=== PATIENT | male | born 1960 | race Caucasian/White ===

== ENCOUNTER 2017-10-16 13:53 | Emergency (ER) | payer BC, SELFPAY ==
--- NOTE | 2017-10-16 14:04 | ED.HA ---
HPI - Headache <ELLA Cartagena - Last Filed: 10/16/17 21:50> General Chief Complaint: Dizziness Stated Complaint: dizziness Time Seen by Provider: 10/16/17 14:28 History of Present Illness HPI Narrative: 57-year-old male here for complaint of having a dizziness/vertigo that started earlier this morning when he woke up. He states that if he tilts his head upwards or straightforward he gets a sensation that the room is spinning. He denies any headache or chills. No nausea or vomiting. No chest pain no shortness of breath. Patient was ambulatory into the emergency room. He states that he has not had symptoms like this in the past. No other concerns or complaints at this time Related Data Home Medications Medication Instructions Recorded Confirmed Vitamin D3 1 cap PO DAILY 10/16/17 10/16/17 multivitamin 1 tab PO DAILY 10/16/17 10/16/17 turmeric root extract 1 tab PO DAILY 10/16/17 10/16/17 Previous Rx's Medication Instructions Recorded meclizine 25 mg PO BID PRN #20 tab 10/16/17 Allergies Allergy/AdvReac Type Severity Reaction Status Date / Time No Known Allergies Allergy Uncoded 10/16/17 15:48 Review of Systems <ELLA Cartagena - Last Filed: 10/16/17 21:50> Constitutional Denies chills, Denies fever(s), Denies lethargy and Denies weakness Eyes Denies change in vision, Denies eye discharge, Denies irritation and Denies loss of vision ENT Ears, Nose, Mouth, and Throat: Reports vertigo Cardiovascular Denies chest pain, Denies irregular heart rhythm, Denies lightheadedness, Denies palpitations and Denies orthopnea Integumentary/Breasts Denies pruritus, Denies erythema, Denies rash and Denies wounds Neurologic Reports vertigo, Denies loss of vision and Denies weakness Endocrine Denies palpitations Exam <ELLA Cartagena - Last Filed: 10/16/17 21:50> Initial Vital Signs Initial Vital Signs: Vital Signs Temperature 98.2 F 10/16/17 14:05 Pulse Rate 72 10/16/17 14:05 Respiratory Rate 12 10/16/17 14:05 Blood Pressure 140/69 H 10/16/17 14:05 Pulse Oximetry 98 10/16/17 14:05 Const General: cooperative and well developed Nutritional Appearance: well nourished Orientation: alert, awake, oriented x3 and not confused [facility] Head: normocephalic and atraumatic Ears: external ears normal and TM's normal bilaterally Nose: external nose normal and No nasal discharge Face and sinus: no sinus tenderness Mouth: oral mucosae normal and moist mucous membranes Eyes General: appearance normal, both eyes and all related structures Eyelids: eyelids normal Conjunctivae: conjunctivae normal Sclera: sclerae normal Pupils: PERRL EOM: EOM intact bilaterally and No nystagmus Resp Effort & Inspection: normal respiratory effort, able to speak in complete sentences, no respiratory distress and no use of accessory muscles Auscultation: clear to auscultation bilaterally, no rales, no rhonchi and no wheezes Cardio Rate: regular rate Rhythm: regular rhythm Heart Sounds: no click, no gallops, no murmurs and no rubs Pulses: normal peripheral pulses Skin General: no rashes or lesions noted, No jaundice and No petechiae Neuro General: alert, awake, oriented x3, gait normal and CN's II-XI intact bilaterally Cranial Nerves: PERRL, able to rotate head bilaterally and No nystagmus Cognition: normal cognition Speech: speech normal Gait: normal gait <Arturo Monroy DO - Last Filed: 10/23/17 18:12> Initial Vital Signs Initial Vital Signs: Vital Signs Temperature 98.2 F 10/16/17 14:05 Pulse Rate 72 10/16/17 14:05 Respiratory Rate 12 10/16/17 14:05 Blood Pressure 140/69 H 10/16/17 14:05 Pulse Oximetry 98 10/16/17 14:05 Course <ELLA Cartagena - Last Filed: 10/16/17 21:50> Orders Ordered: Discontinued Medications Meclizine HCl (Antivert) 25 mg PO NOW ONE Stop: 10/16/17 14:29 Last Admin: 10/16/17 14:37 Dose: 25 mg Vital Signs - 8 hr 10/16/17 14:05 10/16/17 15:56 10/16/17 16:01 Temperature 98.2 F Pulse Rate 72 65 65 Respiratory Rate 12 18 18 Blood Pressure 140/69 H 123/75 H Blood Pressure [Left Arm] 123/75 H Pulse Oximetry 98 96 96 <Arturo Monroy DO - Last Filed: 10/23/17 18:12> Orders Ordered: Discontinued Medications Meclizine HCl (Antivert) 25 mg PO NOW ONE Stop: 10/16/17 14:29 Last Admin: 10/16/17 14:37 Dose: 25 mg Vital Signs - 8 hr 10/16/17 14:05 10/16/17 15:56 10/16/17 16:01 Temperature 98.2 F Pulse Rate 72 65 65 Respiratory Rate 12 18 Blood Pressure 140/69 H 123/75 H Blood Pressure [Left Arm] 123/75 H Pulse Oximetry 98 96 96 MDM - Headache <ELLA Cartagena - Last Filed: 10/16/17 21:50> Lab Data Result diagrams: 10/16/17 14:40 10/16/17 14:40 Lab Results 10/16/17 10/16/17 10/16/17 Range/Units 14:40 14:40 14:40 WBC 6.1 (4.5-11.0) X10^3/uL RBC 5.08 (4.5-5.9) X10^6/uL Hgb 15.3 (13.5-17.5) g/dL Hct 44.3 (41-53) % MCV 87.3 (80-100) fL MCH 30.1 (26-34) PG MCHC 34.5 (30-36) % RDW 13.1 (11.6-14.8) % Plt Count 229 (150-400) X10^3/uL Neut % (Auto) 63.1 (50-75) % Lymph % (Auto) 29.5 (25-40) % Nolan % (Auto) 6.1 (3-14) % Eos % (Auto) 0.7 L (2-4) % Baso % (Auto) 0.6 (0-2) % Neut # (Auto) 3800 (9773-4596) /uL PT 11.7 (10.1-12.7) SECONDS INR 1.1 (0.9-1.3) Sodium 142 (137-145) mmol/L Potassium 4.7 (3.4-5.1) mmol/L Chloride 103.0 (98-107) mmol/L Carbon Dioxide 27.0 (22-32) mmol/L BUN 17.0 (9-20) mg/dL Creatinine 0.90 (0.66-1.25) mg/dL Estimated GFR > 60.0 (>60) mL/min BUN/Creatinine Ratio 18.9 (6-22) Glucose 123 H (70-100) mg/dL Calcium 9.3 (8.4-10.2) mg/dL Total Bilirubin 0.4 (0.2-1.3) mg/dL AST 30 (17-59) IU/L ALT 51 (21-72) IU/L Alkaline Phosphatase 64 (38-126) U/L Troponin I < 0.012 (0.01-0.034) ng/mL Total Protein 7.3 (6.3-8.2) g/dL Albumin 4.4 (3.5-5.0) g/dL Globulin 2.9 (1.7-4.1) g/dL Albumin/Globulin Ratio 1.5 (1.0-2.8) Imaging Data CT scan - head: Radiologist's impression: PROCEDURE: CT HEAD/BRAIN WO CON INDICATIONS: dizziness and vertigo TECHNIQUE: Noncontrast 4.5 mm thick angled axial sections acquired from the foramen magnum to the vertex, with coronal and sagittal reformats. For radiation dose reduction, the following was used: automated exposure control, adjustment of mA and/or kV according to patient size. COMPARISON: None. FINDINGS: Image quality: Excellent. CSF spaces: Basal cisterns are patent. No extra-axial fluid collections. Ventricles are normal in size and shape. Brain: No midline shift. No intracranial masses or hemorrhage. Iqbal-white matter interface is normal. Skull and face: Calvarium and visualized facial bones are intact, without suspicious lesions. Sinuses: Visualized sinuses and mastoids are clear. IMPRESSION: Normal head CT exam. ECG Data Interpretation: -EKG shows normal sinus rhythm with no ST elevation or depression. No ectopy. Ventricular rate is 74. Pure interval 172. QRS duration 78. QTC 429 MDM Narrative Medical decision making narrative: No neurological deficits on exam. Head CT was obtained was negative. Cardiac enzymes were negative. EKG was unremarkable. Other laboratory results were normal. Signs and symptoms present as BPPV. Patient was given meclizine in the emergency room which helped his symptoms and patient states feels much better. Discussed other causes of vertigo and recommended patient follow up with primary care provider in the next couple days for re-evaluation and discussion of MRI. He states that he will follow up with his primary care provider. For any worsening symptoms return to the emergency room. He is prescribed meclizine for his symptoms. He has presented with modified Martha maneuvers to see if it helps his symptoms. <Arturo Eliana, DO - Last Filed: 10/23/17 18:12> Lab Data Lab Results 10/16/17 10/16/17 10/16/17 Range/Units 14:40 14:40 14:40 WBC 6.1 (4.5-11.0) X10^3/uL RBC 5.08 (4.5-5.9) X10^6/uL Hgb 15.3 (13.5-17.5) g/dL Hct 44.3 (41-53) % MCV 87.3 (80-100) fL MCH 30.1 (26-34) PG MCHC 34.5 (30-36) % RDW 13.1 (11.6-14.8) % Plt Count 229 (150-400) X10^3/uL Neut % (Auto) 63.1 (50-75) % Lymph % (Auto) 29.5 (25-40) % Nolan % (Auto) 6.1 (3-14) % Eos % (Auto) 0.7 L (2-4) % Baso % (Auto) 0.6 (0-2) % Neut # (Auto) 3800 (6870-5193) /uL PT 11.7 (10.1-12.7) SECONDS INR 1.1 (0.9-1.3) Sodium 142 (137-145) mmol/L Potassium 4.7 (3.4-5.1) mmol/L Chloride 103.0 (98-107) mmol/L Carbon Dioxide 27.0 (22-32) mmol/L BUN 17.0 (9-20) mg/dL Creatinine 0.90 (0.66-1.25) mg/dL Estimated GFR > 60.0 (>60) mL/min BUN/Creatinine Ratio 18.9 (6-22) Glucose 123 H (70-100) mg/dL Calcium 9.3 (8.4-10.2) mg/dL Total Bilirubin 0.4 (0.2-1.3) mg/dL AST 30 (17-59) IU/L ALT 51 (21-72) IU/L Alkaline Phosphatase 64 (38-126) U/L Troponin I < 0.012 (0.01-0.034) ng/mL Total Protein 7.3 (6.3-8.2) g/dL Albumin 4.4 (3.5-5.0) g/dL Globulin 2.9 (1.7-4.1) g/dL Albumin/Globulin Ratio 1.5 (1.0-2.8) Discharge Plan Departure Patient Disposition: Home, Self-Care Clinical Impression: Vertigo Discharge Date/Time: 10/16/17 16:01 Interventions: ED Discharge Assessment Last Done: 10/16/17 16:01 Instructions: DI for Benign Paroxysmal Positional Vertigo Activity Restrictions/Additional Instructions: Imaging and laboratory results today were unremarkable. Signs and symptoms presents as benign paroxymal positional vertigo. He has been prescribed meclizine to help with her symptoms use as directed. Also perform Martha maneuvers as directed. Follow up with her primary care provider in the next couple a days for discussion of MRI for further evaluation of the vertigo symptoms. For any worsening symptoms return to the emergency room. Prescriptions: New meclizine 25 mg tablet 25 mg PO BID PRN (Reason: vertigo) Qty: 20 RF: 0 No Action Vitamin D3 1 cap PO DAILY RF: 0 multivitamin 1 tab PO DAILY RF: 0 turmeric root extract 1 tab PO DAILY RF: 0 Referrals: Michelle Nascimento MD [Primary Care Provider] - <Arturo Monroy DO - Last Filed: 10/23/17 18:12> Cosign ED Attending Oneal Attestation: I was available for consultation during this patient's emergency department encounter
[2017-10-16 14:05] VITALS: BP 140/69; PULSE 72; RESP 12; TEMP 36.8; O2SAT 98
--- NOTE | 2017-10-16 14:22 | DI.CT.S_ITS ---
PROCEDURE: CT HEAD/BRAIN WO CON INDICATIONS: dizziness and vertigo TECHNIQUE: Noncontrast 4.5 mm thick angled axial sections acquired from the foramen magnum to the vertex, with coronal and sagittal reformats. For radiation dose reduction, the following was used: automated exposure control, adjustment of mA and/or kV according to patient size. COMPARISON: None. FINDINGS: Image quality: Excellent. CSF spaces: Basal cisterns are patent. No extra-axial fluid collections. Ventricles are normal in size and shape. Brain: No midline shift. No intracranial masses or hemorrhage. Iqbal-white matter interface is normal. Skull and face: Calvarium and visualized facial bones are intact, without suspicious lesions. Sinuses: Visualized sinuses and mastoids are clear. IMPRESSION: Normal head CT exam. Dictated by: Benjy Coats M.D. on 10/16/2017 at 14:47 Approved by: Benjy Coats M.D. on 10/16/2017 at 14:48
--- NOTE | 2017-10-16 14:22 | DI.RAD.S_ITS ---
PROCEDURE: XR CHEST 1V INDICATIONS: dizziness TECHNIQUE: One view of the chest was acquired. COMPARISON: [facility], CR, XR CHEST 2VW, 08/01/2016, 9:46. FINDINGS: Surgical changes and devices: None. Lungs and pleura: No pleural effusions or pneumothorax. Lungs are clear. Mediastinum: Mediastinal contours appear normal. Heart size is normal. Bones and chest wall: No suspicious bony lesions. Overlying soft tissues appear unremarkable. IMPRESSION: No acute cardiopulmonary disease process. Dictated by: Sujatha Chaney MD, PhD on 10/16/2017 at 14:15 Approved by: Sujatha Chaney MD, PhD on 10/16/2017 at 14:16
[2017-10-16] MEDS: MECLIZINE HCL 12.5 MG TABLET 25 MG PO (14:37)
[2017-10-16 14:51] LABS: Add Manual Diff / Slide Review NO; Basophils Percent Auto 0.6 % (0-2); Eosinophils Percent Auto 0.7 % (2-4); Hematocrit 44.3 % (41-53); Hemoglobin 15.3 g/dL (13.5-17.5); Lymphocytes Percent Auto 29.5 % (25-40); Mean Corpuscular HGB Conc 34.5 % (30-36); Mean Corpuscular Hemoglobin 30.1 PG (26-34); Mean Corpuscular Volume 87.3 fL (80-100); Monocytes Percent Auto 6.1 % (3-14); Neutrophils Absolute Auto 3800 /uL (3000-5900); Neutrophils Percent Auto 63.1 % (50-75); Platelet Count 229 X10^3/uL (150-400); Red Blood Cell Count 5.08 X10^6/uL (4.5-5.9); Red Cell Distribution Width 13.1 % (11.6-14.8); White Blood Cell Count 6.1 X10^3/uL (4.5-11.0)
[2017-10-16 14:58] LABS: INR 1.1 (0.9-1.3); Prothrombin Time 11.7 SECONDS (10.1-12.7)
[2017-10-16 15:03] LABS: Alanine Aminotransferase 51 IU/L (21-72); Albumin 4.4 g/dL (3.5-5.0); Albumin Globulin Ratio 1.5 (1.0-2.8); Alkaline Phosphatase 64 U/L (38-126); Aspartate Aminotransferase 30 IU/L (17-59); BUN Creatinine Ratio 18.9 (6-22); Bilirubin Total 0.4 mg/dL (0.2-1.3); Calcium 9.3 mg/dL (8.4-10.2); Estimated Glomerular Filt Rate > 60.0 mL/min (>60); Globulin 2.9 g/dL (1.7-4.1); Glucose 123 mg/dL (70-100); HEMOLYSIS < 15 (0-50); Potassium 4.7 mmol/L (3.4-5.1); Sodium 142 mmol/L (137-145); Total Protein 7.3 g/dL (6.3-8.2)
[2017-10-16 15:14] LABS: Troponin I < 0.012 ng/mL (0.01-0.034)
[2017-10-16 15:56] VITALS: BP 123/75; PULSE 65; RESP 18; O2SAT 96
--- NOTE | 2017-10-16 15:56 | PC.NURSE ---
States feels much better after po meds.
[2017-10-16 16:01] VITALS: BP 123/75; PULSE 65; RESP 18; O2SAT 96
== END 2017-10-16 16:01 | disposition home or self-care (01) ==
PROVIDERS: Emergency Provider Nurse Practitioner Family; Family Provider Internal Medicine; PCP Internal Medicine
DX: R42 Dizziness and giddiness (principal)
CPT/HCPCS: 36415; 70450; 71045; 80053; 84484; 85025; 85610; 93005; 99282; 99285

== ENCOUNTER → 2018-01-01 10:06 | Outpatient (CLI) | payer BC, SELFPAY ==
--- NOTE | 2018-01-01 10:10 | DI.RAD.S_ITS ---
PROCEDURE: XR THORACIC SPINE 3V INDICATIONS: THORACIC SPINE PAIN TECHNIQUE: 3 views of the thoracic spine were acquired. COMPARISON: None. FINDINGS: Bones: No fractures or dislocations. No suspicious bony lesions. 12 pairs of ribs are noted, and appear intact where visualized. Soft tissues: No paravertebral stripe thickening. IMPRESSION: Very mild degenerative endplate changes in lower thoracic spine. No compression fracture or spondylolisthesis. Dictated by: Bharathi Macias M.D. on 01/01/2018 at 10:58 Approved by: Bharathi Macias M.D. on 01/01/2018 at 10:58
== END ==
PROVIDERS: PCP Internal Medicine; Visit Provider Internal Medicine
DX: M54.6 Pain in thoracic spine (principal)
CPT/HCPCS: 72072

== ENCOUNTER → 2018-06-22 11:57 | Outpatient (CLI) | payer BC, SELFPAY ==
[2018-06-22 12:55] LABS: Alanine Aminotransferase 81 IU/L (21-72); Albumin 4.8 g/dL (3.5-5.0); Albumin Globulin Ratio 1.4 (1.0-2.8); Alkaline Phosphatase 61 U/L (38-126); Aspartate Aminotransferase 129 IU/L (17-59); Bilirubin Total 0.6 mg/dL (0.2-1.3); Blood Urea Nitrogen 18 mg/dL (9-20); Calcium 9.3 mg/dL (8.4-10.2); Carbon Dioxide 29 mmol/L (22-32); Chloride 100 mmol/L (98-107); Cholesterol 253 mg/dL (140-199); Estimated Glomerular Filt Rate > 60.0 mL/min (>60); Globulin 3.4 g/dL (1.7-4.1); Glucose 99 mg/dL (70-100); HDL Cholesterol 49 mg/dL (40-60); HEMOLYSIS < 15 (0-50); LDL Cholesterol Calculated 169 mg/dL (<100); Sodium 139 mmol/L (137-145); Total Protein 8.2 g/dL (6.3-8.2); Triglycerides 173 mg/dL (35-150)
[2018-06-22 13:02] LABS: C-Reactive Protein Quant < 0.5 mg/dL (<1.0)
[2018-06-22 13:41] LABS: Vitamin B12 585 pg/mL (239-931)
== END ==
PROVIDERS: Family Provider Internal Medicine; PCP Internal Medicine; Visit Provider Internal Medicine
DX: E78.00 Pure hypercholesterolemia, unspecified (principal); M79.10 Myalgia, unspecified site
CPT/HCPCS: 36415; 80053; 80061; 82607; 84443; 86140

== ENCOUNTER → 2018-09-20 12:47 | Outpatient (CLI) | payer BC, SELFPAY ==
[2018-09-20 14:15] LABS: Alanine Aminotransferase 35 IU/L (21-72); Albumin 4.7 g/dL (3.5-5.0); Albumin Globulin Ratio 1.5 (1.0-2.8); Alkaline Phosphatase 62 U/L (38-126); Aspartate Aminotransferase 27 IU/L (17-59); BUN Creatinine Ratio 17.8 (6-22); Bilirubin Total 0.4 mg/dL (0.2-1.3); Blood Urea Nitrogen 16 mg/dL (9-20); Calcium 9.6 mg/dL (8.4-10.2); Carbon Dioxide 30 mmol/L (22-32); Chloride 101 mmol/L (98-107); Estimated Glomerular Filt Rate > 60.0 mL/min (>60); Globulin 3.1 g/dL (1.7-4.1); Glucose 84 mg/dL (70-100); HEMOLYSIS < 15 (0-50); Sodium 141 mmol/L (137-145); Total Protein 7.8 g/dL (6.3-8.2)
== END ==
PROVIDERS: PCP Internal Medicine; Visit Provider Internal Medicine
DX: R94.5 Abnormal results of liver function studies (principal)
CPT/HCPCS: 36415; 80053

== ENCOUNTER → 2018-09-23 08:19 | Outpatient (CLI) | payer BC, SELFPAY ==
--- NOTE | 2018-09-23 | DI.US.S_ITS ---
PROCEDURE: US ABDOMEN COMPLETE INDICATIONS: ABNORMAL RESULTS OF LIVER FUNCTION TESTS TECHNIQUE: Real-time scanning was performed of the abdominal and retroperitoneal organs, with image documentation. COMPARISON: [facility], US, US ABDOMEN COMPLETE, 06/07/2017, 12:47. [facility], CT, CT ABD PELVIS W CON, 08/08/2016, 11:24. FINDINGS: Liver: Liver is normal in size and homogeneous in echotexture. Gallbladder: No gallstones identified. Normal gallbladder wall. No pericholecystic fluid. Negative sonographic Alex sign. Biliary ducts: Intrahepatic bile ducts are non-dilated. Extrahepatic bile duct caliber measures for 0.0 mm. Normal is 6-7 mm or less in diameter, or 10 mm or less post-cholecystectomy. Pancreas: Visualized portions of the pancreas are sonographically normal. Spleen: Spleen is normal in size and homogeneous in echotexture. Kidneys: Kidneys are normal in size and echotexture. Right kidney measures 11.6 cm long; left kidney measures 10.4 cm long. No hydronephrosis or nephrolithiasis. No solid masses. Aorta: Visualized aorta is normal in caliber at less than 3 cm. Iliacs: Proximal common iliac arteries are normal in caliber at less than 2.5 cm. IVC: Intrahepatic inferior vena cava is patent. Miscellaneous: No free abdominal fluid. IMPRESSION: No source for elevated LFTs identified. Dictated by: Tommy PLEITEZ Interpreted: Sujatha Chaney MD on 09/23/2018 at 10:11 Approved by: Sujatha Chaney MD, PhD on 09/23/2018 at 15:25
== END ==
PROVIDERS: PCP Internal Medicine; Visit Provider Internal Medicine
DX: R79.89 Other specified abnormal findings of blood chemistry (principal)
CPT/HCPCS: 76700

== ENCOUNTER → 2020-06-03 13:17 | Outpatient (CLI) | payer BC, SELFPAY ==
[2020-06-03 14:48] LABS: Alanine Aminotransferase 48 IU/L (<50); Albumin 4.5 g/dL (3.5-5.0); Albumin Globulin Ratio 1.6 (1.0-2.8); Alkaline Phosphatase 67 U/L (38-126); Aspartate Aminotransferase 63 IU/L (17-59); Bilirubin Total 0.4 mg/dL (0.2-1.3); Blood Urea Nitrogen 17 mg/dL (9-20); Calcium 9.2 mg/dL (8.4-10.2); Carbon Dioxide 31 mmol/L (22-32); Chloride 103 mmol/L (98-107); Cholesterol 233 mg/dL (140-199); Estimated Glomerular Filt Rate > 60.0 mL/min (>60); Globulin 2.9 g/dL (1.7-4.1); Glucose 91 mg/dL (70-100); HDL Cholesterol 47 mg/dL (40-60); HEMOLYSIS < 15 (0-50); LDL Cholesterol Calculated 157 mg/dL (<100); Lipase 84 U/L (23-300); Potassium 4.8 mmol/L (3.4-5.1); Sodium 138 mmol/L (137-145); Total Protein 7.4 g/dL (6.3-8.2); Triglycerides 147 mg/dL (35-150)
== END ==
PROVIDERS: PCP Internal Medicine; Referring Provider Internal Medicine; Visit Provider Internal Medicine
DX: R10.13 Epigastric pain (principal); E78.5 Hyperlipidemia, unspecified
CPT/HCPCS: 36415; 80053; 80061; 83690

== ENCOUNTER → 2020-06-11 11:49 | Outpatient (CLI) | payer BC, SELFPAY ==
--- NOTE | 2020-06-11 12:49 | DI.CT.S_ITS ---
PROCEDURE: CT ABDOMEN W CON INDICATIONS: Epigastric pain TECHNIQUE: After the administration of oral and intravenous contrast, 5 mm thick sections acquired from the diaphragms to the iliac crests. 5 mm thick coronal and sagittal reformats were acquired. For radiation dose reduction, the following was used: automated exposure control, adjustment of mA and/or kV according to patient size. COMPARISON: [facility], CT, CT ABD PELVIS W CON, 08/08/2016, 11:24. FINDINGS: Image quality: Excellent. Lung bases: Lung bases are clear except for a small pneumatocele at the right lung base just above the diaphragm. Heart size is normal. Solid organs: Liver is normal in size and enhancement. Gallbladder appears normal . Biliary system is non dilated. Pancreas enhances normally. Spleen is normal in size and enhancement. No adrenal nodules. Kidneys are normal in size, without hydronephrosis. Peritoneum and bowel: Contrast enhanced bowel loops appear normal in caliber. No free fluid or air. Nodes and vessels: No retroperitoneal or mesenteric adenopathy by size criteria. Aorta and inferior vena cava are normal in size. Bones: No suspicious bony lesions. No vertebral body compression fractures. Miscellaneous: No ventral hernias. 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 Dictated by: Trevon Forde M.D. on 06/11/2020 at 13:13 Approved by: Trevon Forde M.D. on 06/11/2020 at 13:14
== END ==
PROVIDERS: PCP Internal Medicine; Referring Provider Internal Medicine; Visit Provider Internal Medicine
DX: R10.13 Epigastric pain (principal); J98.4 Other disorders of lung
CPT/HCPCS: 74160; Q9967

== ENCOUNTER → 2020-08-09 13:50 | Outpatient (CLI) | payer BC, SELFPAY ==
[2020-08-09 15:50] LABS: COVID19 -Nasal RAPID Negative (Negative)
== END ==
PROVIDERS: PCP Internal Medicine; Visit Provider Physician Assistant
DX: Z20.822 Contact with and (suspected) exposure to COVID-19 (principal)
CPT/HCPCS: 87635

== ENCOUNTER 2020-08-11 07:51 | Day surgery (SDC) | payer BC, SELFPAY ==
--- NOTE | 2020-08-11 | PATH_ITS ---
[facility] Accession Number: [id number] . 01 Material submitted: . colon - SIGMOID COLON POLYPS (2) . 02 Diagnosis: Sigmoid Colon Polyps, Biopsies: Fragments of hyperplastic polyp (two polyps removed). V 08/16/2020 1458 Local . 02 Electronically signed: . Nadeem Larson MD, PhD, Pathologist NPI- [id number] . 01 Gross description: . SIGMOID COLON POLYPS (2): Received in formalin are 4 fragment(s) of clark, soft tissue measuring 1.0 x 0.3 x 0.1 cm to 0.3 x 0.3 x 0.1 cm submitted entirely in 1 cassette(s) /QBJ 08/13/2020 0835 Local . 02 Pathologist provided ICD-10: K63.5 . 02 CPT . 811531 Performed at: 01 [facility] [address] [facility], [place], [place] [id number] MD Bertin Grissom MD Phone: [phone] Performed at: 02 [facility] [address] [place], [place] [id number] MD Sneha Goodwin MD Phone: [phone]
[2020-08-11 08:23] VITALS: BP 134/70; PULSE 68; RESP 13; TEMP 36.4; O2SAT 96; BMI 25.0
[2020-08-11] MEDS: SODIUM CHLORIDE 0.9% 1,000 ML 84 ML IV (08:45)
--- NOTE | 2020-08-11 09:36 | P.HP_ITS ---
History of Present Illness History of Present Illness Chief complaint: [facility] Patient History Family & Social History Social History: household members none Tobacco & Substance use: Smoking Status Former smoker alcohol intake former Substance Use Type does not use Meds Home Medications and Allergies Home Medications Medication Instructions Recorded Confirmed Type Vitamin D3 1 cap PO DAILY 10/16/17 08/11/20 History meclizine 25 mg PO BID PRN #20 tab 10/16/17 08/11/20 Rx multivitamin 1 tab PO DAILY 10/16/17 08/11/20 History turmeric root extract 1 tab PO DAILY 10/16/17 10/16/17 History Allergies Allergy/AdvReac Type Severity Reaction Status Date / Time No Known Allergies Allergy Uncoded 10/16/17 15:48 Review of Systems Review of Systems ROS: Yes All systems reviewed with the patient and are negative except as otherwise documented Exam Vital Signs (past 8 hours): - 08/11/20 08:23 Temperature 97.6 F Pulse Rate 68 Respiratory Rate 13 Blood Pressure 134/70 Pulse Oximetry 96 Oxygen Delivery Method Room Air Oxygen Flow Rate 0 Narrative Exam Narrative: Awake alert and oriented x3, pupils equal round reactive to light, oropharynx clear, heart regular rate and rhythm, lungs clear to auscultation bilaterally, abdomen nontender and nondistended, extremities without edema, no gross neurologic deficits noted Assessment & Plan Assessment & Plan narrative: Change in bowel habits COVID-19 COVID-19 status: Negative
--- NOTE | 2020-08-11 10:02 | PM.OP.ENDO ---
Operative Date/Time/Diagnoses Date of procedure: 08/11/20 Procedure & Clinicians Study performed: Colonoscopy with biopsy Moderate conscious sedation was administered by the endoscopy nurse and supervised by the endoscopist. The following parameters were monitored: Oxygen saturation, heart rate, blood pressure, and response to care. 4mg midazolam and 100mcg fentanyl given. Same procedure as scheduled: Yes Indications: Change in bowel habits. Last colonoscopy was in 2012. Procedure Notes Procedure in detail: Prior to the procedure, history and physical was performed, and patient medications and allergies were reviewed. Preprocedure nursing history and assessment was reviewed. Patient identification and proposed procedure were verified by the physician and nurse in the procedure room. The physical status of the patient was reassessed after the procedure. After informed consent was obtained including risks, benefits, and alternatives, the scope was passed under direct vision. Throughout the procedure, the patient's blood pressure, pulse, and oxygen saturations were monitored continuously. The colonoscope was introduced through the anus and advanced to the cecum as identified by the appendiceal orifice and ileocecal valve. The patient tolerated the procedure well. Bowel prep was deemed adequate to detect polyps greater than 5 mm. AICHA and perianal examinations were unremarkable. Grade 1 internal hemorrhoids noted during retroflexion in the rectum. Two sessile polyps measuring 3 and 4 mm respectively were removed from the sigmoid colon using Jumbo biopsy forceps and retrieved The entire examined colon was otherwise unremarkable Impression: Internal hemorrhoids Two small sigmoid colon polyps removed Colon otherwise normal appearing Sedation minutes: 19 Complications: other (EBL minimal. No complications) Post-procedure Plan for aftercare: Follow-up pathology results Repeat colonoscopy at a date to be determined based on pathology results Resume home medications Resume previous diet Patient has a contact number available for emergencies. The signs and symptoms of potential delayed complications were discussed with the patient. Return to normal activities tomorrow. Written discharge instructions were provided to the patient. Discharge home with escort
[2020-08-11] MEDS: fentaNYL 250 MCG/5 ML INJ IV (10:04)
[2020-08-11 10:05] VITALS: BP 106/58; PULSE 68; RESP 14; TEMP 36.4; O2SAT 95
[2020-08-11] MEDS: MIDAZOLAM 5 MG/5 ML VIAL IV (10:05)
[2020-08-11 10:10] VITALS: BP 107/58; PULSE 64; RESP 14; O2SAT 96
[2020-08-11 10:15] VITALS: BP 108/59; PULSE 60; RESP 12; O2SAT 95
[2020-08-11 10:20] VITALS: BP 108/75; PULSE 85; RESP 14; O2SAT 95
[2020-08-11 10:30] VITALS: BP 117/78; PULSE 70; RESP 16; TEMP 36.6; O2SAT 98
--- NOTE | 2020-08-11 10:40 | SUR.PHASEII ---
1035 Patient denies having any discomfort/nausea. Preparing to discharge. Stable
== END 2020-08-11 10:40 | disposition home or self-care (01) ==
PROVIDERS: PCP Internal Medicine; Referring Provider Internal Medicine; Visit Provider Internal Medicine
PROC: 0DJD8ZZ Inspection of Lower Intestinal Tract, Via Natural or Artificial Opening Endoscopic (ICD-10-PCS; CPT 45378; principal; 2020-08-11 09:30)
DX: R19.4 Change in bowel habit (principal); K64.0 First degree hemorrhoids; K63.5 Polyp of colon
CPT/HCPCS: 45380; J2250; J3010

== ENCOUNTER → 2021-07-11 15:23 | Outpatient (CLI) | payer BC, SELFPAY ==
--- NOTE | 2021-07-11 | DI.ECHO.S_ITS ---
[place] [facility]---------+ [facility] +---------+ : : [address] : : : : [id number] : : : : Phone: [phone] Echocardiogram Report + + :Name: JUAN DIEGO DALLAS Study Date: 07/11/2021 Height: 72 in : :[facility] ReadingLocation: Weight: 185 lb : : Gender: Male BSA: 2.1 m2 : :: 1960 Age: 61 yrs BP: 148/81 mmHg: :Reason For Study: DYSPNEA : :Ordering Physician: SINGH, : :KEITH Performed By: Kandice Reddy : :Referring: KEITH WINTERS : + + Interpretation Summary 1) Normal left ventricular size, thickness, wall motion, and systolic function (EF 55-60%). 2) Normal right ventricular size and function. 3) No significant valvular abnormalities. 4) Pulmonary artery pressures cannot be estimated because of the lack of a measurable TR jet velocity. 5) No prior Echo available for comparison. Procedure: A two-dimensional transthoracic echocardiogram with color flow and Doppler was performed. The study quality was technically adequate. There is no prior echocardiogram noted for this patient. The patient was in sinus rhythm with heart rates between 63-80 bpm during the exam. Left Ventricle: The left ventricle is normal in size and wall thickness. The ejection fraction is estimated to be 55-60%. Left ventricular systolic function appears normal without focal wall motion abnormalities. Right Ventricle: The right ventricle is normal in size and function. Atria: The left atrial size is normal. Right atrial size is normal. There is no Doppler evidence for an interatrial shunt. Mitral Valve: The mitral valve is normal in structure and function. There is trace mitral regurgitation. Aortic Valve: The aortic valve is trileaflet. The aortic valve opens well. There is no aortic valve stenosis. There is trace aortic regurgitation. Tricuspid Valve: The tricuspid valve is normal in structure and function. There is a trace or physiologic amount of tricuspid regurgitation. Pulmonary artery pressures cannot be estimated because of the lack of a measurable TR jet velocity. Pulmonic Valve: The pulmonic valve leaflets are thin and pliable; valve motion is normal. There is trace pulmonic regurgitation. Great Vessels: The aortic root is normal size. The dimensions of the ascending aorta are normal. The IVC is of normal diameter and collapses greater than 50% with a sniff. This suggests a low right atrial pressure of 3 mm Hg. Pericardium/ Pleura The pericardium appears normal. There is no pleural effusion. MMode/2D Measurements & Calculations LVIDd: 5.3 cm LVOT diam: 2.2 cm LVIDs: 3.8 cm Ao root diam: 3.5 cm FS: 28.6 % asc Aorta Diam: 3.0 cm IVSd: 0.57 cm Ao Arch Diam (Prox Trans): 2.4 cm LVPWd: 0.61 cm LV kendrick. diameter/BSA (cm/m^2): 2.6 LV sys. diameter/BSA (cm/m^2): 1.8 LA A2 area: 20.4 cm2 RA long axis: 4.2 cm LA A4 area: 14.9 cm2 RA area: 11.3 cm2 LA length (vol): 4.5 cm RA vol: 26.1 ml LA vol: 57.4 ml RA : 12.7 ml/m2 LA vol index: 27.8 ml/m2 IVC diam: 0.98 cm RVD1 (basal): 3.5 cm TAPSE: 1.9 cm Doppler Measurements & Calculations Ao V2 max: 125.4 cm/sec LVOT Max Odilon: 101.1 cm/sec Ao V2 mean: 84.5 cm/sec LV V1 max P.1 mmHg Ao max P.3 mmHg LV V1 VTI: 21.0 cm Ao mean P.2 mmHg SOLE(I,D): 3.4 cm2 Ao V2 VTI: 24.4 cm SOLE(V,D): 3.2 cm2 sev ratio: 0.86 SOLE indexed to BSA (cm^2/m^2): 1.6 MV E max odilon: 68.8 cm/sec PA V2 max: 106.5 cm/sec MV A max odilon: 74.2 cm/sec PA V2 mean: 76.5 cm/sec MV E/A: 0.93 PA mean P.6 mmHg Med Peak E' Odilon: 8.3 cm/sec PA pr(Accel): 24.2 mmHg E/E' med: 8.3 Lat Peak E' Odilon: 12.1 cm/sec E/E' lat: 5.7 E/e' average: 7.0 MV dec time: 0.22 sec SV(LVOT): 82.2 ml Reading Physician:12:39 PM
== END ==
PROVIDERS: PCP Internal Medicine; Referring Provider Internal Medicine; Visit Provider Internal Medicine
DX: R06.00 Dyspnea, unspecified (principal)
CPT/HCPCS: 93306

== ENCOUNTER → 2021-08-03 10:44 | Outpatient (CLI) | payer BC, SELFPAY ==
[2021-08-03 13:28] LABS: COVID19 -Nasal RAPID Negative (Negative)
== END ==
PROVIDERS: PCP Internal Medicine; Visit Provider Family Medicine Sleep Medicine
DX: Z20.822 Contact with and (suspected) exposure to COVID-19 (principal)
CPT/HCPCS: 87635; C9803

== ENCOUNTER → 2021-08-12 14:42 | Outpatient (CLI) | payer BC, SELFPAY ==
[2021-08-12 15:31] LABS: COVID19 -Nasal RAPID Negative (Negative)
== END ==
PROVIDERS: PCP Internal Medicine; Visit Provider Nurse Practitioner Family
DX: Z20.822 Contact with and (suspected) exposure to COVID-19 (principal)
CPT/HCPCS: 87635; C9803

== ENCOUNTER → 2021-08-15 07:39 | Outpatient (CLI) | payer BC, SELFPAY ==
--- NOTE | 2021-08-15 12:08 | P.PCN_ITS ---
Cardiac Stress Test Report Referral & Results Indication: REYNA Rest ECG: SINUS RHYTHM Procedure Note: NM TREADMILL Impression: STANDARD MEHUL PROTOCOL; MAX EFFORT ETT; EXERCISE TIME 8:00, CY +9%, SLIGHTLY REDUCED EXERCISE CAPACITY; MAX HR 176 (109% OF MAX PREDICTED); HAD APPROPRIATE HEMODYNAMIC RESPONSE; BASELINE ECG IS SINUS RHYTHM; PATIENT HAD 2-3/10 CHEST PRE SSURE AT APPROXIMATELY 2 MINUTES AND 15 SECONDS DURING EXERCISEWHICH RESOLVED DURING EXERCISE. NON SPECIFIC ST CHANGES DURING EXERCISE MOST LIKELY DUE TO ARTIFACT. HOWEVER, UPON RECOVERY NON SPECIFIC ST CHANGES RESOLVED. RARE PVCS. HAD MODERATE SOB. MIBI SCAN PENDING, CARDIOLOGY TO REVIEW, DEANGELO JARAMILLO. Please note: Actual ECG tracings can be found in the PACS system.
--- NOTE | 2021-08-15 19:36 | DI.NM.S_ITS ---
DATE OF SERVICE: 08/15/2021 PROCEDURE: Exercise perfusion study. INDICATION: Dyspnea and hyperlipidemia. RADIOPHARMACEUTICAL: 26.2 millicurie technetium-99m Myoview IV was injected at stress and 10.4 millicurie technetium-99m Myoview IV was injected at rest. CARDIAC STRESS: The patient underwent exercise perfusion study under the supervision of an attending staff. The patient walked on Joni protocol for 8 minutes and achieved target heart rate 109 percent with maximum heart rate 176 beats per minute. Baseline blood pressure 122/78 mmHg. Maximum blood pressure 162/90 mmHg. The patient achieved 10.1 METs of workload. CY positive 9 percent. Baseline rhythm was sinus. During stress, some nonspecific ST changes and artifact, as well as some occasional PVCs. During immediate recovery, no obvious ischemic changes or sustained arrhythmias seen. In the beginning of exercise, patient had mild chest discomfort, which got resolved during continuation of exercise. RAW DATA: Breast shadow is seen. There is increased subdiaphragmatic activity. GATED STUDY: Resting LV ejection fraction is 55 percent and stress LV ejection fraction 73 percent. Resting end-diastolic volume 124 mL. TID ratio 0.79, which is within normal limits. Lung/heart ratio 0.32, which is within normal limits. MYOCARDIAL PERFUSION SCAN: Stress supine, resting supine and stress prone images were compared to each other. Stress supine and resting supine images revealed large size, moderate to severely decreased perfusion of inferior wall, as well as mildly decreased perfusion of base to mid anterior wall. During stress prone, there was significant improvement in the inferior wall, as well as anterior wall defect, consistent with breast tissue attenuation, as well as diaphragmatic tissue attenuation artifact. No significant ischemia or infarction pattern. CONCLUSION: I will call this study likely a normal myocardial perfusion study with evidence of breast tissue attenuation, as well as diaphragmatic tissue attenuation artifact, which got improved during prone images. Preserved left ventricular function. Stress left ventricular ejection fraction 73 percent and resting LV ejection fraction 55 percent. The patient walked on Joni protocol for 8 minutes, achieved 10.1 metabolic equivalents of workload. Normal hemodynamic response. No significant sustained arrhythmias. Overall low-risk myocardial perfusion scan. Jonas Feng - Tylor/tory doc#: [id number]/job#: [id number] dd: 08/15/2021 17:57:00 dt: 08/15/2021 18:43:00 DICTATING MD/COPIES TO: David Enriquez MD COPIES MNE: ZEE;
== END ==
PROVIDERS: PCP Internal Medicine; Referring Provider Internal Medicine; Visit Provider Internal Medicine
DX: R06.00 Dyspnea, unspecified (principal); E78.5 Hyperlipidemia, unspecified
CPT/HCPCS: 78452; 93017; A9502

== ENCOUNTER → 2021-08-23 11:51 | Outpatient (CLI) | payer BC, SELFPAY ==
--- NOTE | 2021-08-23 12:00 | DI.CT.S_ITS ---
PROCEDURE: CT ANGIO CHEST PE PROTOCOL INDICATIONS: Chest pain on breathing TECHNIQUE: After the administration of intravenous contrast, 2 mm thick sections acquired from the pulmonary apices to the posterior costophrenic angles. 3-dimensional maximum intensity projection (MIP) coronal and sagittal reformats were then acquired through the thorax. For radiation dose reduction, the following was used: automated exposure control, adjustment of mA and/or kV according to patient size. COMPARISON: [facility], CT, CT ABDOMEN W CON, 06/11/2020, 12:40. FINDINGS: Image quality: Excellent. Pulmonary arteries: Pulmonary arteries are normal in size, and demonstrate no intraluminal filling defects to suggest central pulmonary embolism. Lungs and pleura: There is a cyst in the left lower lobe measuring 3.5 centimeters. The lungs are otherwise clear. No pleural effusions or pneumothorax. Central and peripheral airways are patent. Mediastinum: Heart size is normal, without pericardial effusion. No mediastinal or hilar adenopathy. Thoracic aorta is normal in caliber and enhancement. Esophagus is normal in caliber, without hiatal hernia. Bones and chest wall: No suspicious bony lesions. Ribs and thoracic spine appear intact throughout. Thyroid gland is uniform attenuation. No axillary or supraclavicular adenopathy. Abdomen: Visualized upper abdominal solid organs appear normal in the early arterial phase of enhancement. IMPRESSION: No acute finding. Dictated by: Cristhian Oglesby M.D. on 08/23/2021 at 12:50 Approved by: Cristhian Oglesby M.D. on 08/23/2021 at 13:16
== END ==
PROVIDERS: PCP Internal Medicine; Referring Provider Internal Medicine; Visit Provider Internal Medicine
DX: R07.1 Chest pain on breathing (principal)
CPT/HCPCS: 71275

== ENCOUNTER → 2022-06-23 12:40 | Outpatient (CLI) | payer OTHER, SELFPAY ==
--- NOTE | 2022-06-23 12:43 | DI.RAD.S_ITS ---
PROCEDURE: XR KNEE LT 3V INDICATIONS: left knee pain lateral, fall TECHNIQUE: 3 views of the knee were acquired. COMPARISON: None. FINDINGS: Bones: No fractures or dislocations. No suspicious bony lesions. Soft tissues: No joint effusion. No suspicious soft tissue calcifications. IMPRESSION: No acute radiographic findings. If pain persists, followup imaging in 5-7 days is recommended to exclude occult fracture. Dictated by: Gala Medrano M.D. on 06/23/2022 at 13:09 Approved by: Gala Medrano M.D. on 06/23/2022 at 13:13
== END ==
PROVIDERS: PCP Internal Medicine; Referring Provider Student in an Organized Health Care Education/Training Program; Visit Provider Student in an Organized Health Care Education/Training Program
DX: S86.912A Strain of unspecified muscle(s) and tendon(s) at lower leg level, left leg, initial encounter (principal); M25.562 Pain in left knee; M25.462 Effusion, left knee; Y99.0 Civilian activity done for income or pay; W19.XXXA Unspecified fall, initial encounter
CPT/HCPCS: 73562